=== PATIENT | male | born 1965 | race Caucasian/White ===

== ENCOUNTER 2020-11-19 08:00 | Emergency (ER) | payer MEDICARE ==
[~2020-11-19] VITALS: Ht 172.7 cm; Wt 76.2 kg
--- NOTE | 2020-11-19 08:00 | NUR ---
PT BIB SELF FOR MEDICAL CLEARANCE FOR SOCAL VAN NUYS AND DEPRESSION. PT IS AAOX4, NOT IN RESPIRATORY DISTRESS, V/S STABLE, KEPT RESTED AND COMFORTABLE. WILL CONTINUE TO MONITOR.
--- NOTE | 2020-11-19 08:07 | NUR ---
SEEN AND EXAMINED BY .
--- NOTE | 2020-11-19 08:20 | NUR ---
ER PHLEB AT BEDSIDE FOR BLOOD DRAW.
--- NOTE | 2020-11-19 08:27 | NUR ---
COVID SPECIMEN COLLECTED AND SENT TO LAB.
[2020-11-19 08:45] LABS: BASOPHILS # (AUTO) 0.1 /CMM (0.0-0.2); BASOPHILS % (AUTO) 0.9 % (0.0-2.0); EOSINOPHILS % (AUTO) 0.7 % (0.0-6.0); HEMATOCRIT 45 % (39-51); HEMOGLOBIN 14.7 g/dL (13.5-17.5); LYMPHOCYTES % (AUTO) 18.7 % (20.0-44.0); MEAN CORPUSCULAR HGB CONC 33 g/dl (31.0-36.0); MEAN CORPUSCULAR VOLUME 85 fL (80-96); MONOCYTES # (AUTO) 0.4 /CMM (0.1-1.30); MONOCYTES % (AUTO) 7.4 % (2.0-12.0); NEUTROPHILS # (AUTO) 3.9 /CMM (1.8-8.9); NEUTROPHILS % (AUTO) 72.3 % (43.0-81.0); RED BLOOD CELL COUNT(AUTO) 5.26 MIL/uL (4.5-6.0); WHITE BLOOD COUNT (AUTO) 5.5 K/uL (4.3-11.0)
[2020-11-19 09:14] LABS: CALCIUM, SERUM 9.2 mg/dL (8.5-10.1); CARBON DIOXIDE 26 mmol/L (21-32); CHLORIDE 104 mmol/L (98-107); GLUCOSE 88 mg/dL (74-106); POTASSIUM 3.1 mmol/L (3.5-5.1); SODIUM SERUM 142 mmol/L (136-145); UREA NITROGEN, BLOOD 19 mg/dL (7-18)
[2020-11-19 09:19] LABS: ALANINE AMINOTRANSFERASE 35 U/L (12-78); ALBUMIN 4.5 g/dL (3.4-5.0); ALKALINE PHOSPHATASE 59 U/L (46-116); ASPARTATE AMINOTRANSFERASE 29 U/L (15-37); BILIRUBIN,DIRECT 0.1 mg/dL (0.0-0.2); BILIRUBIN,TOTAL 0.7 mg/dL (0.2-1.0); TOTAL PROTEIN, SERUM 7.9 g/dL (6.4-8.2)
[2020-11-19 09:20] LABS: ACETAMINOPHEN 0 ug/ml (10-30)
[2020-11-19 09:21] LABS: ALCOHOL, BLOOD < 3 mg/dL (0-0)
[2020-11-19 11:18] LABS: BILIRUBIN,URINE NEGATIVE (NEGATIVE); COLOR,URINE YELLOW (YELLOW); LEUKOCYTE ESTERASE ,URINE NEGATIVE (NEGATIVE); NITRITE, URINE NEGATIVE (NEGATIVE); PROTEIN,URINE NEGATIVE (NEGATIVE); UGLUCOSE NEGATIVE (NEGATIVE); UROBILINOGEN,URINE 0.2 EU/dL (0.2)
--- NOTE | 2020-11-19 11:32 | NUR ---
PATIENT RESTING, IN NO DISTRESS NOTED. NEEDS ATTENDED.
[2020-11-19 12:34] LABS: PLATELET COUNT (AUTO) 175 /CMM (150-450)
[2020-11-19 12:42] LABS: BACTERIA,URINE None seen /HPF (None Seen); RBC,URINE 0-2 /HPF (0-2); WBC,URINE NONE SEEN /HPF (0-3)
--- NOTE | 2020-11-19 12:49 | NUR ---
SS Consult: SS consult requested for SI. The pt. is a 55-year old male. SW met with pt. bedside. The pt. is alert & oriented x 4. Pt. remained calm & cooperative throughout interview. The pt. appears well-groomed with good eye contact. Pt.s mood is anxious with distressed affect. SW explored pt.s SI. Pt. denies having a plan. Pt. stated he has a Hx. of Sever depression, and cutting self (last time he cut was 7 weeks ago). Per pt. he has been prescribed with Mirtazapine, Gabapentin, Alprazolam. Pt. stated he recently ran out of some of these medications. Pt. stated he attempted suicide August 2019 by drinking himself to . SW offered pt. voluntary placement in a psychiatric facility for treatment and pt. is agreeable. Pt. stated he is originally from [place], [place]. Per pt. he resided there with his girlfriend, Tonia Louis [phone]. Per pt. this is his first day in [place]. Pt. stated he and his girlfriend are moving here permanently. Patient stated they have an apartment already however, he could not recall address. Pt. stated he currently received disability benefits. Per pt. 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 and is looking to continue that type of work while residing in [place]. Pt. denies alcohol use, drug use and states he last used Cannabinoids in April 2021. Pt. denies HI and denies hallucinations. Pt. is ambulatory. Plan: Pt. has SI with no plan. Pt. is agreeable to receive voluntary placement at a psychiatric facility. ED nursing to fax clinicals to [facility] [[address] [place] [address] ] for inpatient psychiatric treatment. SW provided pt. with mental health resources and pt. is agreeable. Mental Health resources provided: [facility] [address] [place] [address] ; [facility] [address], [place] [address] ; [facility] [address] [place] [address] ; [facility] [place], [place] [id number] Healthcare Clinics: [facility] [address], [address] [place]. [place] ; [facility] [address] [place] [address]; [facility] [address] [place] [address] [phone] Counseling--Outpatient [facility] [address], [place] [address] (Specializes in in-depth psychotherapy for emotional distress: anxiety, depression, interpersonal conflicts, life transitions, childhood abuse) [facility] [address] [place] [address] (Assist with solving problem marital difficulties, separation & divorce, aging parents, & grief, chronic & terminal illness) [facility] [address] [place] [address] (Deal with loss & grief, anxiety, marital difficulties) [facility] [address], [address] [place] [address] (Provide in-home mental services to people who are incapable of leaving their homes) [facility] [address] [place] [address] [facility] [address] [facility] [place] [address] PSYCHIATRIC OUTPATIENT SERVICES [facility] Partial Hospitalization and Intensive Outpatient Program (Managed Care and [place] Only)[address] [facility] [phone] [facility] Partial Hospitalization and Outpatient [id number] [facility] [address] [place], [place] [phone] [facility] Partial Hospitalization and Outpatient [id number] [facility] [place], [place] [phone] ROBIN KARISSA [facility] [id number] [place], [place] [phone] [facility] and Outpatient [id number] [facility] [place] Robin Garcia, [phone]
--- NOTE | 2020-11-19 13:11 | NUR ---
STEPH faxed clinicals to [facility] [[address] [place] [address] [phone] attn: Camilo] for inpatient psychiatric treatment.
[2020-11-19 13:15] LABS: EOSINOPHILS % (MANUAL) 1 % (0-4); LYMPHOCYTES % (MANUAL) 18 % (16-48); MONOCYTES % (MANUAL) 9 % (0-11.0); NEUTROPHILS % (MANUAL) 72 (42-76)
--- NOTE | 2020-11-19 14:30 | NUR ---
call from [facility],accepted by Dr York to [address],[facility],report to [phone]
--- NOTE | 2020-11-19 14:33 | NUR ---
TRANSPORT WITH [facility] ETA IS 30-40MINS
--- NOTE | 2020-11-19 15:03 | NUR ---
REPORT GIVEN TO HECTOR HAMILTON OF [facility] FOR JUAN MIGUEL.
[2020-11-19 15:04] VITALS: BP 145/81
--- NOTE | 2020-11-19 15:11 | NUR ---
REPORT GIVEN TO EMS FOR PT TRANSFER TO [facility].
== END 2020-11-19 15:16 ==
LOC: ER 08:03
DX: F32.9 Major depressive disorder, single episode, unspecified (principal); R45.851 Suicidal ideations; Z20.822 Contact with and (suspected) exposure to COVID-19; D69.6 Thrombocytopenia, unspecified; E87.6 Hypokalemia
CPT/HCPCS: 36415; 80048-TC; 80076-TC; 81001; 85025-TC; C9803; G0480